=== PATIENT | female | born 1960 | race Caucasian/White ===

== ENCOUNTER 2016-12-28 22:38 | Emergency (ER) | payer OTHER, MEDICAID ==
[~2016-12-28] VITALS: Ht 157.4 cm; Wt 106.6 kg
[~2016-12-28 22:38] MED LIST: ADVAIR 500/501 EA INH; ALBUTEROL0.09 MG/A3 INH; ALBUTEROL2.5 MG/0.5 INH; ANAPROX DS550 MG PO; BACTRIM DS 8001 TA1 PO; BUPROPION300 MG PO; CIPROFLOXACIN500 MG PO; CYMBALTA30 MG PO; CYMBALTA60 MG PO; Catapres-Tts 10.1 MG PO; DAYPRO600 M1 PO; DITROPAN XL5 MG PO; ELMIRON100 MG PO; GLYBURIDE5 MG PO; HYDR12.5C PO; KLONOPIN1 MG PO; KLOR-CON M1010 ME1 PO; LATUDA120 MG PO; LATUDA80 MG PO; LEVOFLOXACIN500 MG PO; LISINOPRIL20 MG PO; LISINOPRIL40 MG PO; Metformin Hydr500 MG PO; NEXIUM 24HR20 MG PO; OXYBUTYNIN5 MG PO; PREDNISONE10 MG PO; SEROQUEL XR200 MG PO; SIMVASTATIN40 MG PO; VIBRAMYCIN100 MG PO; VICODIN 500 MG-1 TAB PO; VIIBRYD40; VITAMIN D50000 I2 PO; WELLBUTRIN XL300 MG PO; WELLBUTRIN100 MG PO; XANAX0.5 MG PO; ZOFRAN4 MG PO
[2016-12-28] MEDS ORDERED: LATU20TA PO (23:11)
[2016-12-28] MEDS ORDERED: ALPRAZOLAM XR0.5 MG PO (23:12)
[2016-12-28] MEDS ORDERED: ZANTAC 300300 MG PO (23:12)
[2016-12-28] MEDS ORDERED: HYDR25T PO (23:12)
[2016-12-28] MEDS ORDERED: PERCOCET 325 MG1 TA3 PO (23:12)
[2016-12-28] MEDS ORDERED: IBUPROFEN600 MG PO (23:13)
[2016-12-28] MEDS ORDERED: JARDIANCE10 MG PO (23:13)
[2016-12-28] MEDS ORDERED: CYCLOBENZAPRINE5 M3 PO (23:13)
[2016-12-28] MEDS ORDERED: ZOCOR40 MG PO (23:13)
[2016-12-28 23:24] LABS: BASO # 0.1 10*3/uL (0.0-0.1); BASO % 0.6 % (0.0-1.0); EOS # 0.1 10*3/uL (0.0-0.4); EOS % 1.2 % (1.0-4.0); HEMATOCRIT 39.1 % (37.0-47.0); IG # 0.1 10*3/uL (0.0-0.1); LYMPH # 1.5 10*3/uL (1.3-4.4); LYMPH % 14.2 % (27.0-41.0); MEAN CELL VOLUME 81.1 fl (81.0-99.0); MEAN CORPUSCULAR HGB 24.9 pg (27.0-31.0); MEAN CORPUSCULAR HGB CONC 30.7 g/dl (33.0-37.0); MEAN PLATELET VOLUME 9.2 fl (9.6-12.3); MONO # 0.9 10*3/uL (0.1-1.0); MONO % 7.9 % (3.0-9.0); NEUT # 8.1 10*3/uL (2.3-7.9); NEUT % 75.1 % (47.0-73.0); PLATELET COUNT AUTOMATED 286 10*3/uL (130-400); RED BLOOD COUNT 4.82 10*6/uL (4.10-5.10); RED CELL DISTRI WIDTH 15.1 % (0-14.5); WHITE BLOOD COUNT 10.8 10*3/uL (4.8-10.8)
[2016-12-28 23:40] LABS: ALBUMIN 3.3 gm/dl (3.1-4.5); ALKALINE PHOSPHATASE 120 U/L (45-117); BILIRUBIN, TOTAL 0.2 mg/dl (0.2-1.0); BUN 16 mg/dl (7-24); C-REACTIVE PROTEIN 2.08 MG/DL (0-0.3); CARBON DIOXIDE 28 mmol/L (21-32); CHLORIDE 103 mmol/L (98-107); EST GLOM FILT AFRICAN AMERICAN > 60 ml/min; GLUCOSE 145 mg/dL (65-99); POTASSIUM 3.5 mmol/L (3.5-5.1); SGOT/AST 16 IU/L (3-35); SGPT/ALT 22 U/L (12-78); SODIUM 142 mmol/L (136-145); TOTAL PROTEIN 6.6 gm/dL (6.4-8.2)
== END 2016-12-29 03:22 | disposition short-term general hospital (02) ==
LOC: ED 22:38
PROVIDERS: Emergency Medicine
DX: R32 Unspecified urinary incontinence (principal); M54.5 Low back pain; R20.9 Unspecified disturbances of skin sensation; R26.2 Difficulty in walking, not elsewhere classified; M79.89 Other specified soft tissue disorders; Z88.6 Allergy status to analgesic agent; Z91.041 Radiographic dye allergy status; Z79.899 Other long term (current) drug therapy

== ENCOUNTER → 2017-01-18 | Outpatient (CLI) | payer OTHER, MEDICAID ==
[~2017-01-18] MED LIST changes: +ALPRAZOLAM XR0.5 MG PO; +CYCLOBENZAPRINE5 M3 PO; +HYDR25T PO; +IBUPROFEN600 MG PO; +JARDIANCE10 MG PO; +LATU20TA PO; +PERCOCET 325 MG1 TA3 PO; +ZANTAC 300300 MG PO; +ZOCOR40 MG PO
== END | disposition home or self-care (01) ==
LOC: RAD/SH 07:49 → RAD 08:00
DX: K21.9 Gastro-esophageal reflux disease without esophagitis (principal); R09.89 Other specified symptoms and signs involving the circulatory and respiratory systems

== ENCOUNTER → 2017-01-24 | Outpatient (CLI) | payer OTHER, MEDICAID | END | disposition home or self-care (01) | LOC: US 07:16 | DX: R10.31 Right lower quadrant pain (principal); R10.2 Pelvic and perineal pain; Z90.710 Acquired absence of both cervix and uterus ==

== ENCOUNTER → 2017-02-20 | Outpatient (CLI) | payer OTHER, MEDICAID | END | disposition home or self-care (01) | LOC: CT 08:48 | DX: N28.1 Cyst of kidney, acquired (principal); K76.0 Fatty (change of) liver, not elsewhere classified; K59.00 Constipation, unspecified; R19.7 Diarrhea, unspecified; M47.896 Other spondylosis, lumbar region; Z90.710 Acquired absence of both cervix and uterus ==

== ENCOUNTER → 2017-05-01 | Outpatient (CLI) | payer OTHER, MEDICAID ==
[2017-05-01 11:15] LABS: BASO # 0.1 10*3/uL (0.0-0.1); BASO % 0.7 % (0.0-1.0); EOS # 0.2 10*3/uL (0.0-0.4); EOS % 3.2 % (1.0-4.0); HEMATOCRIT 42.5 % (37.0-47.0); HEMOGLOBIN 13.3 g/dl (12.0-16.0); LYMPH # 1.1 10*3/uL (1.3-4.4); LYMPH % 16.4 % (27.0-41.0); MEAN CELL VOLUME 81.4 fl (81.0-99.0); MEAN CORPUSCULAR HGB 25.5 pg (27.0-31.0); MEAN CORPUSCULAR HGB CONC 31.3 g/dl (33.0-37.0); MEAN PLATELET VOLUME 9.4 fl (9.6-12.3); MONO # 0.6 10*3/uL (0.1-1.0); NEUT # 4.8 10*3/uL (2.3-7.9); NEUT % 70.1 % (47.0-73.0); PLATELET COUNT AUTOMATED 234 10*3/uL (130-400); RED BLOOD COUNT 5.22 10*6/uL (4.10-5.10); RED CELL DISTRI WIDTH 15.3 % (0-14.5); WHITE BLOOD COUNT 6.9 10*3/uL (4.8-10.8)
== END | disposition home or self-care (01) ==
LOC: LAB 10:32
PROVIDERS: Specialist
DX: D64.9 Anemia, unspecified (principal)

== ENCOUNTER 2017-05-09 11:04 | Emergency (ER) | payer OTHER, MEDICAID | END 2017-05-09 13:40 | disposition short-term general hospital (02) | LOC: ED 11:04 | DX: S52.301A Unspecified fracture of shaft of right radius, initial encounter for closed fracture (principal); S52.201A Unspecified fracture of shaft of right ulna, initial encounter for closed fracture; Z91.041 Radiographic dye allergy status; Z88.6 Allergy status to analgesic agent; Z79.899 Other long term (current) drug therapy; W18.09XA Striking against other object with subsequent fall, initial encounter; Y93.89 Activity, other specified; Y92.89 Other specified places as the place of occurrence of the external cause; Y99.8 Other external cause status ==

== ENCOUNTER 2018-02-10 18:56 | Emergency (ER) | payer OTHER, MEDICAID ==
[~2018-02-10] VITALS: Ht 157.4 cm; Wt 106.6 kg
[2018-02-10 19:16] LABS: BILIRUBIN NEGATIVE (NEGATIVE); BLOOD NEGATIVE (NEGATIVE); CLARITY CLEAR (CLEAR); COLOR YELLOW (YELLOW); GLUCOSE NEGATIVE (NEGATIVE); KETONE NEGATIVE (NEGATIVE); LEUKO ESTERASE NEGATIVE (NEGATIVE); NITRITE NEGATIVE (NEGATIVE); PH 5.5 (5.0-9.0); SPECIFIC GRAVITY 1.015 (1.005-1.030); UROBILINOGEN 0.2 E.U./dl (0.2-1.0)
[2018-02-10 19:21] LABS: RBC 0-2 rbc/hpf (0-2)
[2018-02-10 19:22] LABS: BACTERIA 2+
[2018-02-10 19:38] LABS: BASO % 0.4 % (0.0-1.0); EOS # 0.1 10*3/uL (0.0-0.4); HEMATOCRIT 38.3 % (37.0-47.0); HEMOGLOBIN 11.7 g/dl (12.0-16.0); LYMPH # 1.2 10*3/uL (1.3-4.4); LYMPH % 10.7 % (27.0-41.0); MEAN CORPUSCULAR HGB 24.7 pg (27.0-31.0); MEAN CORPUSCULAR HGB CONC 30.5 g/dl (33.0-37.0); MEAN PLATELET VOLUME 9.7 fl (9.6-12.3); MONO # 0.6 10*3/uL (0.1-1.0); MONO % 5.2 % (3.0-9.0); NEUT # 9.2 10*3/uL (2.3-7.9); NEUT % 82.3 % (47.0-73.0); PLATELET COUNT AUTOMATED 269 10*3/uL (130-400); RED BLOOD COUNT 4.73 10*6/uL (4.10-5.10); RED CELL DISTRI WIDTH 15.2 % (0-14.5); WHITE BLOOD COUNT 11.2 10*3/uL (4.8-10.8)
[2018-02-10 19:52] LABS: ALBUMIN 3.6 gm/dl (3.1-4.5); ALKALINE PHOSPHATASE 114 U/L (45-117); BUN 13 mg/dl (7-24); CHLORIDE 103 mmol/L (98-107); CREATININE 0.97 mg/dL (0.55-1.02); POTASSIUM 3.5 mmol/L (3.5-5.1); SGOT/AST 8 IU/L (3-35); SGPT/ALT 19 U/L (12-78); SODIUM 141 mmol/L (136-145); TOTAL PROTEIN 7.4 gm/dL (6.4-8.2)
[2018-02-17] MEDS ORDERED: LAMICTAL100 MG PO (08:23)
[2018-02-17] MEDS ORDERED: COLACE100 MG PO (08:24)
[2018-02-17] MEDS ORDERED: ATIVAN0.5 MG PO (08:24)
[2018-02-17] MEDS ORDERED: TRAZODONE50 MG PO (08:24)
[2018-02-17] MEDS ORDERED: NEXIUM40 MG PO (08:25)
[2018-02-17] MEDS ORDERED: CYCLOBENZAPRINE5 M3 PO (08:25)
== END 2018-02-10 21:08 | disposition home or self-care (01) ==
LOC: ED 18:56
PROVIDERS: Physician Assistant
DX: N23 Unspecified renal colic (principal); Z91.041 Radiographic dye allergy status; Z88.6 Allergy status to analgesic agent; Z79.899 Other long term (current) drug therapy; Z90.710 Acquired absence of both cervix and uterus

== ENCOUNTER → 2018-02-14 | Outpatient (CLI) | payer OTHER, MEDICAID ==
[~2018-02-14] MED LIST changes: +ATIVAN0.5 MG PO; +COLACE100 MG PO; +LAMICTAL100 MG PO; +NEXIUM40 MG PO; +TRAZODONE50 MG PO
--- NOTE | ~2018-02-14 | HM ---
[place], [place] HOLTER MONITOR REPORT NAME[id number] UNIT #: [id number] ROOM: DOCTOR: AMILCAR PADILLA MD BIRTHDATE: [birth year] DOS: 02/17/2018 A 48 HOUR HOLTER MONITOR REFERRING PHYSICIAN: Dr. Manuel Alan. Study was done from February 14 to 2017. The tape was analyzed interpreted and dictated on February 17, 2018. INDICATIONS: Palpitations. PROCEDURE: The patient underwent monitoring utilizing a Holter device for 48 hours beginning February 14, 2018. The basic rhythm was sinus with an average heart rate of 87. The heart rate in sinus rhythm varied from 62-140 beats per minute. The maximum heart rate occurred at 4:20 p.m. No premature ventricular contractions were recorded. There was no ventricular tachycardia or pause seen. Rare premature atrial contractions were recorded. A single 9-beat run of paroxysmal atrial tachycardia was recorded at 10:30 p.m. No symptoms were listed at the time of the SVT. The patient did return a diary. She did mention palpitations and fluttering on 3 occasions. At each time, she was in sinus rhythm with a heart rate of about 80. IMPRESSION: One brief episode of paroxysmal atrial tachycardia was recorded, but did not have symptoms, otherwise normal 24-hour Holter monitor. AMILCAR PADILLA MD CM:HOLTER:HOLTER MONITOR REPORT [id number] AMILCAR PADILLA MD
== END | disposition home or self-care (01) ==
LOC: CARD 09:15
DX: R00.2 Palpitations (principal); R07.9 Chest pain, unspecified

== ENCOUNTER → 2018-02-17 | Outpatient (CLI) | payer OTHER, MEDICAID ==
--- NOTE | ~2018-02-17 | ST ---
[place], [place] EXERCISE STRESS TEST REPORT NAME: GABRIELLE MARCUS [facility] #: [id number] UNIT #: [id number] ROOM: DOCTOR: AMILCAR PADILLA MD BIRTHDATE: [birth year] DOS: 02/17/2018 EXERCISE/PHARMACOLOGIC STRESS TEST REFERRING PHYSICIAN: Dr. Alan. INDICATIONS: Dyspnea with exertion, hypertension, diabetes. PROCEDURE: The patient walked on the first stage of a full Thomas protocol for 2 minutes 6 seconds and then had to stop because of severe fatigue and dyspnea. There was a severe baseline artifact on the electrocardiogram, which made interpretation of ST segments impossible. She appeared to achieve a maximum heart rate of about 146, which represented 88% of her maximum predicted heart rate. She did not have chest pain with exertion. The exercise EKG was uninterpretable. Because of concerns regarding the adequacy of the exercise test, she was given pharmacologic agent, regadenoson 0.4 mg IV and then 40 seconds later, she was given radionuclide intravenously. IMPRESSION: 1. Well tolerated exercise/pharmacologic stress test. 2. Radionuclide injected. Please see the separate imaging report for further details regarding the patient's stress test results. AMILCAR PADILLA MD CM:STRESS:EXERCISE STRESS TEST REPORT [id number] AMILCAR PADILLA MD
== END | disposition home or self-care (01) ==
LOC: CARD 07:09
DX: R07.9 Chest pain, unspecified (principal); R06.00 Dyspnea, unspecified; R00.2 Palpitations; E11.9 Type 2 diabetes mellitus without complications; I10 Essential (primary) hypertension

== ENCOUNTER → 2018-04-03 | Outpatient (CLI) | payer OTHER, MEDICAID | END | disposition home or self-care (01) | LOC: US 09:07 | DX: K76.0 Fatty (change of) liver, not elsewhere classified (principal); G89.18 Other acute postprocedural pain; M25.551 Pain in right hip ==

== ENCOUNTER → 2018-06-16 | Outpatient (CLI) | payer OTHER, MEDICAID ==
[2018-06-16 13:16] LABS: ALBUMIN 3.6 gm/dl (3.1-4.5); ALKALINE PHOSPHATASE 126 U/L (45-117); BILIRUBIN, DIRECT 0.1 mg/dL (0.0-0.2); BUN 14 mg/dl (7-24); CREATININE 0.94 mg/dL (0.55-1.02); SGOT/AST 11 IU/L (3-35); SGPT/ALT 19 U/L (12-78); TOTAL PROTEIN 7.6 gm/dL (6.4-8.2)
== END ==
LOC: LAB 12:31
PROVIDERS: Nurse Practitioner Gerontology
DX: Z79.899 Other long term (current) drug therapy (principal)

== ENCOUNTER → 2018-12-12 | Outpatient (CLI) | payer OTHER, MEDICAID | END | disposition home or self-care (01) | LOC: RAD 10:06 | DX: M17.0 Bilateral primary osteoarthritis of knee (principal); M25.551 Pain in right hip; M25.552 Pain in left hip ==

== ENCOUNTER → 2021-05-02 | Outpatient (CLI) | payer OTHER, MEDICAID ==
[2021-05-02 14:35] LABS: BASO # 0.1 10*3/uL (0.0-0.1); BASO % 0.7 % (0.0-1.0); EOS # 0.1 10*3/uL (0.0-0.4); EOS % 1.5 % (1.0-4.0); HEMATOCRIT 37.7 % (37.0-47.0); LYMPH # 1.1 10*3/uL (1.3-4.4); LYMPH % 15.5 % (27.0-41.0); MEAN CELL VOLUME 80.6 fl (81.0-99.0); MEAN CORPUSCULAR HGB 23.7 pg (27.0-31.0); MEAN CORPUSCULAR HGB CONC 29.4 g/dl (33.0-37.0); MEAN PLATELET VOLUME 9.3 fl (9.6-12.3); MONO # 0.5 10*3/uL (0.1-1.0); MONO % 6.5 % (3.0-9.0); NEUT # 5.4 10*3/uL (2.3-7.9); NEUT % 75.2 % (47.0-73.0); PLATELET COUNT AUTOMATED 285 10*3/uL (130-400); RED BLOOD COUNT 4.68 10*6/uL (4.10-5.10); RED CELL DISTRI WIDTH 15.2 % (0-14.5); WHITE BLOOD COUNT 7.2 10*3/uL (4.8-10.8)
[2021-05-02 14:35] LABS: BILIRUBIN Negative (Negative); BLOOD Negative (Negative); CLARITY Cloudy (Clear); COLOR Yellow (Yellow); GLUCOSE Negative (Negative); KETONE Negative (Negative); LEUKO ESTERASE 2+ (Negative); NITRITE Negative (Negative); SPECIFIC GRAVITY 1.025 (1.001-1.030)
[2021-05-02 14:57] LABS: BACTERIA 3+; EPITHELIAL CELLS 31-40; RBC 0-2 rbc/hpf (0-2); WBC 16-20 wbc/hpf (0-5); YEAST 1+
[2021-05-02 14:58] LABS: ALBUMIN 3.3 gm/dl (3.1-4.5); ALKALINE PHOSPHATASE 114 U/L (45-117); BUN 14 mg/dl (7-24); CHLORIDE 107 mmol/L (98-107); CREATININE 0.99 mg/dL (0.55-1.02); POTASSIUM 3.2 mmol/L (3.5-5.1); SGOT/AST 10 IU/L (3-35); SGPT/ALT 18 U/L (12-78); SODIUM 142 mmol/L (136-145); TOTAL PROTEIN 7.4 gm/dL (6.4-8.2)
[2021-05-02 15:06] LABS: FREE T4 1.16 ng/dl (0.76-1.46); THYROID STIM HORMONE (HS) 0.769 uIU/ml (0.358-4.75); VITAMIN D, 25-HYDROXY 25.3 ng/mL (30-100)
[2021-05-03 07:06] LABS: COMPLEMENT C4 31 mg/dL (12-38); HEP B CORE AB, IGM Negative (Negative); HEPATITIS B SURFACE AB Non Reactive (.); HEPATITIS B SURFACE AG Negative (Negative); RHEUMATOID ARTHRITIS FACTOR <10.0 IU/mL (0.0-13.9)
[2021-05-03 14:08] LABS: t-TRANSGLUTAMINASE (tTG) IGA <2 U/mL (0-3); t-TRANSGLUTAMINASE (tTG) IgG <2 U/mL (0-5)
[2021-05-03 16:08] LABS: ENDOMYSIAL ANTIBODY IgA Negative (Negative)
[2021-05-03 17:07] LABS: ANTI-RNP ANTIBODIES <0.2 AI (0.0-0.9); SJOGREN ANTI-SS-A <0.2 AI (0.0-0.9); SJOREN AB, ANTI-SS-B <0.2 AI (0.0-0.9)
[2021-05-04 00:06] LABS: CCP ANTIBODIES IGG/IGA 4 units (0-19)
[2021-05-10 19:06] LABS: HLA-B27 ANTIGEN Negative (.)
== END | disposition home or self-care (01) ==
LOC: LAB 13:54
PROVIDERS: ATTEND Orthopaedic Surgery
DX: R53.83 Other fatigue (principal); L56.8 Other specified acute skin changes due to ultraviolet radiation; M25.50 Pain in unspecified joint; M35.00 Sjogren syndrome, unspecified; Z87.448 Personal history of other diseases of urinary system

== ENCOUNTER 2021-05-08 12:32 | Emergency (ER) | payer OTHER, MEDICAID ==
[~2021-05-08] VITALS: Ht 152.4 cm; Wt 130.2 kg
== END 2021-05-08 17:02 | disposition home or self-care (01) ==
LOC: ED 12:32
DX: R11.2 Nausea with vomiting, unspecified (principal); R19.7 Diarrhea, unspecified; R10.9 Unspecified abdominal pain; Z53.21 Procedure and treatment not carried out due to patient leaving prior to being seen by health care provider

== ENCOUNTER → 2021-07-17 | Outpatient (CLI) | payer OTHER, MEDICAID ==
[2021-07-17 12:30] LABS: BASO # 0.1 10*3/uL (0.0-0.1); BASO % 0.6 % (0.0-1.0); EOS # 0.1 10*3/uL (0.0-0.4); EOS % 1.5 % (1.0-4.0); HEMATOCRIT 37.4 % (37.0-47.0); LYMPH # 1.4 10*3/uL (1.3-4.4); LYMPH % 17.4 % (27.0-41.0); MEAN CELL VOLUME 82.2 fl (81.0-99.0); MEAN CORPUSCULAR HGB 23.7 pg (27.0-31.0); MEAN CORPUSCULAR HGB CONC 28.9 g/dl (33.0-37.0); MEAN PLATELET VOLUME 9.4 fl (9.6-12.3); MONO # 0.5 10*3/uL (0.1-1.0); MONO % 6.9 % (3.0-9.0); NEUT # 5.7 10*3/uL (2.3-7.9); NEUT % 73.1 % (47.0-73.0); PLATELET COUNT AUTOMATED 246 10*3/uL (130-400); RED BLOOD COUNT 4.55 10*6/uL (4.10-5.10); RED CELL DISTRI WIDTH 16.8 % (0-14.5); WHITE BLOOD COUNT 7.8 10*3/uL (4.8-10.8)
[2021-07-17 12:47] LABS: ALBUMIN 3.3 gm/dl (3.1-4.5); CREATININE 1.13 mg/dL (0.55-1.02); POTASSIUM 3.7 mmol/L (3.5-5.1)
== END | disposition home or self-care (01) ==
LOC: LAB 11:41
PROVIDERS: ATTEND Physician Assistant Medical
DX: E55.9 Vitamin D deficiency, unspecified (principal); R53.83 Other fatigue; M35.00 Sjogren syndrome, unspecified; M25.50 Pain in unspecified joint; Z87.448 Personal history of other diseases of urinary system; Z79.899 Other long term (current) drug therapy

== ENCOUNTER → 2021-07-24 | Outpatient (CLI) | payer OTHER, MEDICAID ==
[2021-07-24 14:10] LABS: BILIRUBIN Negative (Negative); BLOOD Negative (Negative); CLARITY Cloudy (Clear); COLOR Yellow (Yellow); GLUCOSE Negative (Negative); KETONE Trace (Negative); LEUKO ESTERASE Trace (Negative); NITRITE Negative (Negative); SPECIFIC GRAVITY >= 1.030 (1.001-1.030)
[2021-07-24 14:32] LABS: BACTERIA 2+; EPITHELIAL CELLS TNTC; HYALINE CAST 0-2; MUCOUS TRACE; RBC 0-2 rbc/hpf (0-2)
== END | disposition home or self-care (01) ==
LOC: LAB 13:21
PROVIDERS: ATTEND Physician Assistant Medical
DX: Z79.899 Other long term (current) drug therapy (principal); Z87.448 Personal history of other diseases of urinary system

== ENCOUNTER → 2021-09-19 | Outpatient (CLI) | payer OTHER, MEDICAID ==
[2021-09-19 15:29] LABS: BASO # 0.1 10*3/uL (0.0-0.1); BASO % 0.6 % (0.0-1.0); EOS # 0.2 10*3/uL (0.0-0.4); EOS % 2.7 % (1.0-4.0); LYMPH # 1.6 10*3/uL (1.3-4.4); LYMPH % 18.9 % (27.0-41.0); MEAN CELL VOLUME 81.3 fl (81.0-99.0); MEAN CORPUSCULAR HGB 24.4 pg (27.0-31.0); MEAN PLATELET VOLUME 9.2 fl (9.6-12.3); MONO # 0.7 10*3/uL (0.1-1.0); MONO % 8.2 % (3.0-9.0); NEUT # 5.7 10*3/uL (2.3-7.9); NEUT % 69.1 % (47.0-73.0); PLATELET COUNT AUTOMATED 255 10*3/uL (130-400); RED BLOOD COUNT 4.55 10*6/uL (4.10-5.10); RED CELL DISTRI WIDTH 15.5 % (0-14.5); WHITE BLOOD COUNT 8.2 10*3/uL (4.8-10.8)
[2021-09-19 15:46] LABS: ALKALINE PHOSPHATASE 100 U/L (45-117); BUN 16 mg/dl (7-24); CHLORIDE 106 mmol/L (98-107); CREATININE 1.02 mg/dL (0.55-1.02); SGOT/AST 9 IU/L (3-35); SGPT/ALT 16 U/L (12-78); SODIUM 139 mmol/L (136-145); TOTAL PROTEIN 7.5 gm/dL (6.4-8.2)
== END ==
LOC: LAB 14:58
PROVIDERS: ATTEND Internal Medicine Rheumatology
DX: M35.00 Sjogren syndrome, unspecified (principal); Z79.899 Other long term (current) drug therapy; M19.90 Unspecified osteoarthritis, unspecified site; R76.8 Other specified abnormal immunological findings in serum

== ENCOUNTER → 2022-05-23 | Outpatient (CLI) | payer OTHER, MEDICAID ==
[2022-05-23 12:02] LABS: BASO % 0.7 % (0.0-1.0); EOS # 0.2 10*3/uL (0.0-0.4); EOS % 3.1 % (1.0-4.0); HEMATOCRIT 35.7 % (37.0-47.0); LYMPH % 17.2 % (27.0-41.0); MEAN CORPUSCULAR HGB 23.8 pg (27.0-31.0); MEAN CORPUSCULAR HGB CONC 29.7 g/dl (33.0-37.0); MEAN PLATELET VOLUME 8.9 fl (9.6-12.3); MONO # 0.4 10*3/uL (0.1-1.0); MONO % 7.3 % (3.0-9.0); NEUT # 4.3 10*3/uL (2.3-7.9); NEUT % 71.2 % (47.0-73.0); PLATELET COUNT AUTOMATED 253 10*3/uL (130-400); RED BLOOD COUNT 4.46 10*6/uL (4.10-5.10); RED CELL DISTRI WIDTH 15.4 % (0-14.5); WHITE BLOOD COUNT 6.1 10*3/uL (4.8-10.8)
[2022-05-23 12:22] LABS: ALKALINE PHOSPHATASE 99 U/L (45-117); BUN 12 mg/dl (7-24); CHLORIDE 107 mmol/L (98-107); CREATININE 1.01 mg/dL (0.55-1.02); POTASSIUM 3.5 mmol/L (3.5-5.1); SGOT/AST 9 IU/L (3-35); SGPT/ALT 15 U/L (12-78); SODIUM 144 mmol/L (136-145); TOTAL PROTEIN 6.9 gm/dL (6.4-8.2)
[2022-05-24 05:06] LABS: RHEUMATOID FACTOR <10.0 IU/mL (<14.0)
[2022-05-24 15:07] LABS: ANTI-DSDNA ANTIBODIES <1 IU/mL (0-9)
== END ==
LOC: LAB 11:29
PROVIDERS: ATTEND Internal Medicine Rheumatology
DX: E78.5 Hyperlipidemia, unspecified (principal); G89.29 Other chronic pain; M25.552 Pain in left hip; M35.00 Sjogren syndrome, unspecified; M19.90 Unspecified osteoarthritis, unspecified site; R76.8 Other specified abnormal immunological findings in serum; M79.671 Pain in right foot; Z79.899 Other long term (current) drug therapy

== ENCOUNTER → 2022-07-04 | Outpatient (CLI) | payer OTHER, MEDICAID ==
[2022-07-04 15:04] LABS: BASO % 0.6 % (0.0-1.0); EOS # 0.2 10*3/uL (0.0-0.4); EOS % 2.3 % (1.0-4.0); HEMATOCRIT 37.4 % (37.0-47.0); LYMPH # 1.2 10*3/uL (1.3-4.4); LYMPH % 16.6 % (27.0-41.0); MEAN CELL VOLUME 80.1 fl (81.0-99.0); MEAN CORPUSCULAR HGB 23.1 pg (27.0-31.0); MEAN CORPUSCULAR HGB CONC 28.9 g/dl (33.0-37.0); MEAN PLATELET VOLUME 9.4 fl (9.6-12.3); MONO # 0.6 10*3/uL (0.1-1.0); MONO % 8.4 % (3.0-9.0); NEUT # 5.1 10*3/uL (2.3-7.9); NEUT % 71.8 % (47.0-73.0); PLATELET COUNT AUTOMATED 260 10*3/uL (130-400); RED BLOOD COUNT 4.67 10*6/uL (4.10-5.10); RED CELL DISTRI WIDTH 15.9 % (0-14.5); WHITE BLOOD COUNT 7.1 10*3/uL (4.8-10.8)
== END | disposition home or self-care (01) ==
LOC: LAB 14:14
PROVIDERS: ATTEND Internal Medicine Rheumatology
DX: M35.00 Sjogren syndrome, unspecified (principal); M19.90 Unspecified osteoarthritis, unspecified site; R53.83 Other fatigue; R76.8 Other specified abnormal immunological findings in serum; Z79.899 Other long term (current) drug therapy; D64.9 Anemia, unspecified

== ENCOUNTER → 2022-11-15 | Outpatient (CLI) | payer OTHER, MEDICAID | END | disposition home or self-care (01) | LOC: LAB 10:27 | PROVIDERS: ATTEND Internal Medicine Rheumatology | DX: D50.9 Iron deficiency anemia, unspecified (principal); R22.0 Localized swelling, mass and lump, head; M35.00 Sjogren syndrome, unspecified; R76.8 Other specified abnormal immunological findings in serum; Z79.899 Other long term (current) drug therapy ==

== ENCOUNTER 2023-09-02 17:12 | Emergency (ER) | payer OTHER, MEDICAID ==
[~2023-09-02] VITALS: Ht 152.4 cm; Wt 123.4 kg
[~2023-09-02 17:12] MED LIST changes: +ARICEPT5 M1 PO; +FUROSEMIDE40 MG PO; +LISINOPRIL-HCT1 EACH PO; +LYVISPAH10 M1 PO; +MORPHINE 00.5 MG/13 PO; +MS CONTIN30 MG PO; +NEURONTIN300 MG PO; +PROVENTIL HFA6.7 GM INH; +VIBRA-TAB100 MG PO; +VICTOZA 3-0.6 MG/0.1 SC; +ZITHROMAX250 MG PO
[2023-09-02] MEDS ORDERED: PLAQUENIL200 MG PO (17:30)
[2023-09-02] MEDS ORDERED: BACLOFEN5 MG PO (17:33)
[2023-09-02] MEDS ORDERED: ZYRTEC10 M2 PO (17:35)
[2023-09-02] MEDS ORDERED: ZESTRIL10 MG PO (17:36)
[2023-09-02 17:45] LABS: BASO % 0.6 % (0.0-1.0); EOS # 0.1 10*3/uL (0.0-0.4); EOS % 0.9 % (1.0-4.0); HEMATOCRIT 40.9 % (37.0-47.0); LYMPH # 0.9 10*3/uL (1.3-4.4); LYMPH % 12.5 % (27.0-41.0); MEAN CELL VOLUME 87.6 fl (81.0-99.0); MEAN CORPUSCULAR HGB 27.8 pg (27.0-31.0); MEAN CORPUSCULAR HGB CONC 31.8 g/dl (33.0-37.0); MEAN PLATELET VOLUME 8.9 fl (9.6-12.3); MONO # 0.6 10*3/uL (0.1-1.0); MONO % 9.2 % (3.0-9.0); NEUT # 5.3 10*3/uL (2.3-7.9); NEUT % 75.9 % (47.0-73.0); PLATELET COUNT AUTOMATED 173 10*3/uL (130-400); RED BLOOD COUNT 4.67 10*6/uL (4.10-5.10); RED CELL DISTRI WIDTH 14.1 % (0-14.5)
[2023-09-02 17:55] LABS: ACT PARTIAL THROMBO TIME 28.5 SECONDS (20.0-32.1)
[2023-09-02 18:22] LABS: ALKALINE PHOSPHATASE 98 U/L (46-116); BUN 8 mg/dl (9-23); CHLORIDE 99 mmol/L (98-107); LIPASE 18 U/L (12-53); POTASSIUM 3.4 mmol/L (3.4-5.1); SGPT/ALT 7 U/L (5-49); TOTAL PROTEIN 7.3 gm/dL (6.0-8.0)
[2023-09-02] MEDS ORDERED: VALTREX1000 MG PO (20:52)
== END 2023-09-02 21:13 | disposition home or self-care (01) ==
LOC: ED 17:12
PROVIDERS: Emergency Medicine
DX: B02.9 Zoster without complications (principal); R79.82 Elevated C-reactive protein (CRP); E87.20 Acidosis, unspecified; I11.0 Hypertensive heart disease with heart failure; I50.9 Heart failure, unspecified; R11.10 Vomiting, unspecified; J45.909 Unspecified asthma, uncomplicated; F31.9 Bipolar disorder, unspecified; K21.9 Gastro-esophageal reflux disease without esophagitis; E11.9 Type 2 diabetes mellitus without complications; Z91.041 Radiographic dye allergy status; Z88.5 Allergy status to narcotic agent; Z88.8 Allergy status to other drugs, medicaments and biological substances; Z90.710 Acquired absence of both cervix and uterus; Z98.890 Other specified postprocedural states

== ENCOUNTER → 2023-09-13 | Outpatient (CLI) | payer OTHER, MEDICAID ==
[~2023-09-13] MED LIST changes: +BACLOFEN5 MG PO; +PLAQUENIL200 MG PO; +VALTREX1000 MG PO; +ZESTRIL10 MG PO; +ZYRTEC10 M2 PO
[2023-09-13 15:16] LABS: BASO # 0.1 10*3/uL (0.0-0.1); BASO % 0.8 % (0.0-1.0); BILIRUBIN Negative (Negative); BLOOD Negative (Negative); CLARITY Clear (Clear); COLOR Yellow (Yellow); EOS # 0.1 10*3/uL (0.0-0.4); EOS % 0.9 % (1.0-4.0); GLUCOSE Negative (Negative); HEMATOCRIT 42.8 % (37.0-47.0); KETONE Negative (Negative); LEUKO ESTERASE Negative (Negative); LYMPH # 1.1 10*3/uL (1.3-4.4); LYMPH % 16.6 % (27.0-41.0); MEAN CELL VOLUME 91.1 fl (81.0-99.0); MEAN CORPUSCULAR HGB 27.7 pg (27.0-31.0); MEAN CORPUSCULAR HGB CONC 30.4 g/dl (33.0-37.0); MEAN PLATELET VOLUME 9.1 fl (9.6-12.3); MONO # 0.5 10*3/uL (0.1-1.0); NEUT # 4.8 10*3/uL (2.3-7.9); NEUT % 73.2 % (47.0-73.0); NITRITE Negative (Negative); PH 5.5 (4.5-8.0); PLATELET COUNT AUTOMATED 253 10*3/uL (130-400); RED CELL DISTRI WIDTH 14.5 % (0-14.5); SPECIFIC GRAVITY <= 1.005 (1.001-1.030); UROBILINOGEN 0.2 E.U./dl (0.0-1.0); WHITE BLOOD COUNT 6.5 10*3/uL (4.8-10.8)
[2023-09-13 15:36] LABS: BACTERIA 1+
[2023-09-13 15:47] LABS: ALKALINE PHOSPHATASE 100 U/L (46-116); BUN 10 mg/dl (9-23); CHLORIDE 103 mmol/L (98-107); SGPT/ALT 9 U/L (5-49); TOTAL PROTEIN 7.2 gm/dL (6.0-8.0)
== END | disposition home or self-care (01) ==
LOC: LAB 14:20
PROVIDERS: ATTEND Internal Medicine Rheumatology
DX: D50.9 Iron deficiency anemia, unspecified (principal); R76.8 Other specified abnormal immunological findings in serum; R22.0 Localized swelling, mass and lump, head; M19.90 Unspecified osteoarthritis, unspecified site; M35.00 Sjogren syndrome, unspecified; Z79.899 Other long term (current) drug therapy

== ENCOUNTER → 2024-06-15 | Outpatient (CLI) | payer OTHER, MEDICAID ==
[2024-06-15 16:14] LABS: BASO # 0.1 10*3/uL (0.0-0.1); BASO % 0.8 % (0.0-1.0); EOS # 0.2 10*3/uL (0.0-0.4); EOS % 2.9 % (1.0-4.0); HEMATOCRIT 41.1 % (37.0-47.0); MEAN CELL VOLUME 89.5 fl (81.0-99.0); MEAN CORPUSCULAR HGB 27.7 pg (27.0-31.0); MEAN CORPUSCULAR HGB CONC 30.9 g/dl (33.0-37.0); MONO # 0.6 10*3/uL (0.1-1.0); MONO % 9.2 % (3.0-9.0); NEUT # 4.2 10*3/uL (2.3-7.9); NEUT % 66.5 % (47.0-73.0); PLATELET COUNT AUTOMATED 202 10*3/uL (130-400); RED BLOOD COUNT 4.59 10*6/uL (4.10-5.10); RED CELL DISTRI WIDTH 13.7 % (0-14.5); WHITE BLOOD COUNT 6.3 10*3/uL (4.8-10.8)
[2024-06-15 16:36] LABS: ALKALINE PHOSPHATASE 119 U/L (46-116); BUN 14 mg/dl (9-23); SGPT/ALT 11 U/L (5-49)
[2024-06-15 16:39] LABS: ALKALINE PHOSPHATASE 116 U/L (46-116); BUN 14 mg/dl (9-23); CHLORIDE 104 mmol/L (98-107); FREE T4 1.37 ng/dl (0.89-1.76); POTASSIUM 3.9 mmol/L (3.4-5.1); SGPT/ALT 10 U/L (5-49); TOTAL PROTEIN 7.2 gm/dL (6.0-8.0)
== END | disposition home or self-care (01) ==
LOC: LAB 15:53
PROVIDERS: Nurse Practitioner Family; ATTEND Internal Medicine Rheumatology
DX: M89.8X9 Other specified disorders of bone, unspecified site (principal); M19.90 Unspecified osteoarthritis, unspecified site; Z79.899 Other long term (current) drug therapy; M79.10 Myalgia, unspecified site; L65.9 Nonscarring hair loss, unspecified

== ENCOUNTER 2024-07-07 15:19 | Emergency (ER) | payer OTHER, MEDICAID ==
[~2024-07-07] VITALS: Ht 165.1 cm; Wt 127.0 kg
[2024-07-07 15:58] LABS: BASO % 0.4 % (0.0-1.0); EOS % 0.3 % (1.0-4.0); HEMATOCRIT 42.6 % (37.0-47.0); MEAN CELL VOLUME 88.6 fl (81.0-99.0); MEAN CORPUSCULAR HGB 27.7 pg (27.0-31.0); MEAN CORPUSCULAR HGB CONC 31.2 g/dl (33.0-37.0); MEAN PLATELET VOLUME 9.1 fl (9.6-12.3); MONO # 0.5 10*3/uL (0.1-1.0); MONO % 7.1 % (3.0-9.0); NEUT # 5.8 10*3/uL (2.3-7.9); PLATELET COUNT AUTOMATED 196 10*3/uL (130-400); RED BLOOD COUNT 4.81 10*6/uL (4.10-5.10); RED CELL DISTRI WIDTH 13.5 % (0-14.5); WHITE BLOOD COUNT 7.3 10*3/uL (4.8-10.8)
[2024-07-07 16:16] LABS: BILIRUBIN Negative (Negative); BLOOD Negative (Negative); CLARITY Clear (Clear); COLOR Yellow (Yellow); GLUCOSE Negative (Negative); KETONE Trace (Negative); LEUKO ESTERASE 2+ (Negative); NITRITE Negative (Negative); SPECIFIC GRAVITY 1.015 (1.001-1.030); UROBILINOGEN 0.2 E.U./dl (0.0-1.0)
[2024-07-07 16:24] LABS: BACTERIA 1+; EPITHELIAL CELLS 21-30
[2024-07-07 16:27] LABS: ALKALINE PHOSPHATASE 129 U/L (46-116); BUN 12 mg/dl (9-23); CHLORIDE 107 mmol/L (98-107); POTASSIUM 3.5 mmol/L (3.4-5.1); SGPT/ALT 11 U/L (5-49); TOTAL PROTEIN 7.4 gm/dL (6.0-8.0)
[2024-07-07] MEDS ORDERED: VIBRAMYCIN100 MG PO (17:03)
[2024-07-07] MEDS ORDERED: Doxycycline Hyclate 100 MG CAP PO ONE (17:05)
== END 2024-07-07 17:39 | disposition home or self-care (01) ==
LOC: ED 15:19
PROVIDERS: Nurse Practitioner
DX: N39.0 Urinary tract infection, site not specified (principal); Z20.822 Contact with and (suspected) exposure to COVID-19; R11.2 Nausea with vomiting, unspecified; R19.7 Diarrhea, unspecified; R60.0 Localized edema; R06.00 Dyspnea, unspecified; I11.0 Hypertensive heart disease with heart failure; I50.9 Heart failure, unspecified; E11.9 Type 2 diabetes mellitus without complications; F31.9 Bipolar disorder, unspecified; E66.9 Obesity, unspecified; Z91.041 Radiographic dye allergy status; Z88.5 Allergy status to narcotic agent; Z88.6 Allergy status to analgesic agent; Z79.899 Other long term (current) drug therapy; Z98.890 Other specified postprocedural states; Z90.710 Acquired absence of both cervix and uterus; Z68.30 Body mass index [BMI] 30.0-30.9, adult

== ENCOUNTER → 2024-10-27 | Outpatient (CLI) | payer OTHER, MEDICAID ==
[2024-10-27 16:23] LABS: BASO % 0.4 % (0.0-1.0); EOS # 0.1 10*3/uL (0.0-0.4); EOS % 1.5 % (1.0-4.0); HEMATOCRIT 39.1 % (37.0-47.0); MEAN CELL VOLUME 89.5 fl (81.0-99.0); MEAN CORPUSCULAR HGB 28.1 pg (27.0-31.0); MEAN CORPUSCULAR HGB CONC 31.5 g/dl (33.0-37.0); MEAN PLATELET VOLUME 9.2 fl (9.6-12.3); MONO # 0.5 10*3/uL (0.1-1.0); MONO % 6.3 % (3.0-9.0); NEUT # 5.5 10*3/uL (2.3-7.9); NEUT % 74.3 % (47.0-73.0); PLATELET COUNT AUTOMATED 218 10*3/uL (130-400); RED BLOOD COUNT 4.37 10*6/uL (4.10-5.10); RED CELL DISTRI WIDTH 12.8 % (0-14.5); WHITE BLOOD COUNT 7.4 10*3/uL (4.8-10.8)
[2024-10-27 17:03] LABS: ALKALINE PHOSPHATASE 110 U/L (46-116); BUN 14 mg/dl (9-23); CHLORIDE 103 mmol/L (98-107); POTASSIUM 3.8 mmol/L (3.4-5.1); SGPT/ALT 11 U/L (5-49)
[2024-10-27 17:06] LABS: VITAMIN D, 25-HYDROXY 27.7 ng/mL (30-100)
== END | disposition home or self-care (01) ==
LOC: LAB 15:57
PROVIDERS: ATTEND Internal Medicine Rheumatology
DX: E55.9 Vitamin D deficiency, unspecified (principal); D64.9 Anemia, unspecified; M79.7 Fibromyalgia; M89.8X9 Other specified disorders of bone, unspecified site; M32.9 Systemic lupus erythematosus, unspecified; M19.90 Unspecified osteoarthritis, unspecified site; R76.8 Other specified abnormal immunological findings in serum; Z79.899 Other long term (current) drug therapy

== ENCOUNTER 2025-06-28 15:01 | Emergency (ER) | payer OTHER, MEDICAID ==
[~2025-06-28] VITALS: Wt 128.4 kg
[~2025-06-28 15:01] MED LIST changes: +ALDACTONE25 MG PO; +ALENDRONATE SOD70 M1 PO; +JARDIANCE25 MG PO; +LASIX20 MG PO; +LOPRESSOR25 MG PO; +MELOXICAM15 MG PO; +ZIPRASIDONE HCL20 M1 PO
[2025-06-28 16:18] LABS: BASO # 0.0 10*3/uL (0.0-0.1); BASO % 0.4 % (0.0-1.0); EOS # 0.0 10*3/uL (0.0-0.4); EOS % 0.2 % (1.0-4.0); MEAN CELL VOLUME 90.4 fl (81.0-99.0); MEAN CORPUSCULAR HGB 27.9 pg (27.0-31.0); MEAN PLATELET VOLUME 9.1 fl (9.6-12.3); MONO # 0.5 10*3/uL (0.1-1.0); MONO % 5.5 % (3.0-9.0); NEUT # 6.6 10*3/uL (2.3-7.9); NEUT % 80.7 % (47.0-73.0); NUCLEATED RED BLOOD CELL 0.0 % (0.0-0.0); NUCLEATED RED BLOOD CELL 0.0 10*3/uL (0.0-0.0); PLATELET COUNT AUTOMATED 203 10*3/uL (130-400); RED CELL DISTRI WIDTH 13.0 % (0-14.5)
[2025-06-28 16:29] LABS: ACT PARTIAL THROMBO TIME 23.9 SECONDS (20.0-32.1)
[2025-06-28 16:39] LABS: BUN 10 mg/dl (9-23); SGPT/ALT 15 U/L (5-49)
[2025-06-28] MEDS ORDERED: POTASSIUM CHLORIDE 20 MEQ TAB PO ONE (18:25)
[2025-06-28 18:53] LABS: BILIRUBIN Negative (Negative); BLOOD Negative (Negative); CLARITY Clear (Clear); COLOR Yellow (Yellow); KETONE Negative (Negative); LEUKO ESTERASE Negative (Negative); NITRITE Negative (Negative); PH 7.0 (4.5-8.0); SPECIFIC GRAVITY <= 1.005 (1.001-1.030); UROBILINOGEN 0.2 E.U./dl (0.0-1.0)
[2025-06-28 19:03] LABS: BACTERIA 2+; RBC 0-2 rbc/hpf (0-2); WBC 0-2 wbc/hpf (0-5)
[2025-06-28] MEDS ORDERED: CIPRO500 MG PO (19:42)
[2025-06-28] MEDS ORDERED: PERCOCET 5-3251 EACH PO (19:42)
[2025-06-28] MEDS ORDERED: Ciprofloxacin Hydrochloride 500 MG TAB PO ONE (19:45)
[2025-06-28] MEDS ORDERED: Acetaminophen/Oxycodone 5 MG/325 MG TABLET PO ONE (19:45)
== END 2025-06-28 20:05 | disposition home or self-care (01) ==
LOC: ED 15:01
PROVIDERS: Nurse Practitioner Family
DX: S30.11XA Contusion of abdominal wall, initial encounter (principal); N39.0 Urinary tract infection, site not specified; B34.9 Viral infection, unspecified; F31.9 Bipolar disorder, unspecified; K21.9 Gastro-esophageal reflux disease without esophagitis; E66.01 Morbid (severe) obesity due to excess calories; M06.9 Rheumatoid arthritis, unspecified; I11.0 Hypertensive heart disease with heart failure; I50.9 Heart failure, unspecified; G47.30 Sleep apnea, unspecified; Z20.822 Contact with and (suspected) exposure to COVID-19; Z79.01 Long term (current) use of anticoagulants; Z98.890 Other specified postprocedural states; Z90.710 Acquired absence of both cervix and uterus; Z88.5 Allergy status to narcotic agent; Z88.8 Allergy status to other drugs, medicaments and biological substances; Z86.711 Personal history of pulmonary embolism; X58.XXXA Exposure to other specified factors, initial encounter; Y93.89 Activity, other specified; Y92.89 Other specified places as the place of occurrence of the external cause; Y99.8 Other external cause status